=== PATIENT | male | born 1960 | race Caucasian/White ===

== ENCOUNTER → 2018-02-10 | Outpatient (CLI) | payer BC ==
--- NOTE | 2018-02-10 17:19 | CONS ---
CONSULTATION DATE OF SERVICE: 02/10/2018 This patient is a 57-year-old gentleman who has been evaluated in the sleep center for possible obstructive sleep apnea-hypopnea syndrome. HISTORY OF PRESENT ILLNESS/SLEEP-WAKE EVALUATION: Patient's usual sleep schedule is from 7 p.m. until 4:30 a.m. basically 7 days a week. Usually he does not have problems with falling asleep. No TV in bedroom. He has loud snoring and witnessed episodes of stopped breathing during sleep. He wakes up from sleep twice and has one episode of nocturia at night. In the morning he wakes up tired, falling asleep during the day, has difficulties paying attention, problems with memory, irritability, anxiety. [place] Sleepiness Scale is significantly increased at 15. PAST MEDICAL HISTORY: 1. Hypertension. 2. Atrial fibrillation. 3. Low level of vitamin D. PAST SURGICAL HISTORY: 1. One kidney removed as a donation. 2. Nasal surgery for polyps in 2014. MEDICATIONS: 1. Metoprolol. 2. Eliquis. 3. Digoxin. 4. Vitamin D. SOCIAL HISTORY: Positive for smoking 1 to 1-1/2 pack a day for about 30 years; quit in September of 2017. Alcohol consumption up to 6 beers, most often on weekends. FAMILY HISTORY: Hypertension, hyperlipidemia, lung problems, emphysema. REVIEW OF SYSTEMS: Awakenings from sleep, sleepiness during the day. Patient takes naps sometimes when he is off work. PHYSICAL EXAMINATION: GENERAL: Pleasant gentleman without distress. VITAL SIGNS: BP 133/75, HR 108, RR 16, height 6 feet 1 inch, weight 265, BMI 34.9. HEENT: PERRLA, EOMI. Evaluation of oropharynx showed tongue protrudes midline; low position of soft palate. Possible nasal septum deviation, restriction of nasal breathing. NECK: Supple. No JVD. Thyroid is not palpable. LUNGS: Clear to percussion and to auscultation. Good air exchange. No wheezing or rhonchi. HEART: S1, S2 irregularly irregular. No murmurs, gallops or rubs. ABDOMEN: Obese. EXTREMITIES : No clubbing or cyanosis. BLADDER CHANGER: Awake, alert, and oriented X3. Cranial nerves 2 to 7 intact. There is no fasciculation or atrophy. noted. No focal deficits observed. IMPRESSION: 1. Snoring, witnessed episodes of stopped breathing during sleep, low position of soft palate, restriction of nasal breathing, wide neck at 18-1/2 inches in circumference; obstructive sleep apnea-hypopnea syndrome. 2. Obesity; body mass index 34.9. 3. Atrial fibrillation. 4. Hypertension. 5. Low level of vitamin D. 6. Status post kidney removed as donation. 7. Status post nasal surgery for polyps. 8. Restriction of nasal breathing; possibly nasal septum deviation. 9. History of smoking for about 40 pack/years; quit several months ago. PLAN: 1. Polysomnography for evaluation of patient's breathing during sleep. 2. CPAP/BiPAP titration if sleep study confirms obstructive sleep apnea-hypopnea syndrome. 3. Preferable position during sleep on the side. 4. No driving if patient feels any sleepiness. 5. I will see patient for follow up visit to explain results of testing and following plan. Thank you very much for referring this patient for consultation. Sincerely, Blade Darnell MD, PhD, FAASM Diplomat of [employer] [employer] [place] [employer] Video Game Programmer of [facility] [place] MMODL / JANETTEN: [id number] /
== END | disposition home or self-care (01) ==
LOC: SLEEP 16:11
PROVIDERS: ATTEND Internal Medicine
DX: G47.33 Obstructive sleep apnea (adult) (pediatric) (principal); E66.9 Obesity, unspecified; I48.91 Unspecified atrial fibrillation; I10 Essential (primary) hypertension; E55.9 Vitamin D deficiency, unspecified; Z94.0 Kidney transplant status; Z87.891 Personal history of nicotine dependence; Z98.890 Other specified postprocedural states; Z79.01 Long term (current) use of anticoagulants; Z79.899 Other long term (current) drug therapy; Z68.34 Body mass index [BMI] 34.0-34.9, adult; Z99.89 Dependence on other enabling machines and devices
CPT/HCPCS: 99211

== ENCOUNTER → 2018-06-27 | Outpatient (CLI) | payer BC ==
[2018-06-27 09:27] LABS: HCT 50.4 % (39.0-53.0); HGB 16.6 gm/dL (13.0-17.5); MCH 30.4 pg (25.0-35.0); MCV 92.4 fL (80.0-100.0); Mean Platelet Volume 7.2; Platelet Count 322 k/uL (150-450); RBC 5.46 m/uL (4.30-5.90); RDW 13.3 % (11.5-15.5); WBC 8.1 k/uL (3.8-10.6)
[2018-06-27 09:44] LABS: Albumin 3.9 g/dL (3.5-5.0); Calcium 10.1 mg/dL (8.4-10.2); Magnesium 1.9 mg/dL (1.6-2.3); Total Bilirubin 0.3 mg/dL (0.2-1.3); Total Protein 6.7 g/dL (6.3-8.2)
== END | disposition home or self-care (01) ==
LOC: LABWHC1 08:31
PROVIDERS: ATTEND Nurse Practitioner Adult Health
DX: I10 Essential (primary) hypertension (principal); I48.2 Chronic atrial fibrillation
CPT/HCPCS: 36415; 80053; 83735; 85027

== ENCOUNTER 2018-06-28 10:47 | Day surgery (SDC) | payer BC ==
[2018-06-23 09:25] VITALS: BMI 33.1
[~2018-06-28 10:47] MED LIST: SODIUM CHLORIDE 0.9% 1,000 ML IV SCH
[2018-06-28 11:37] VITALS: TEMP 97.9
[2018-06-28] MEDS ORDERED: PROPOFOL 10 MG/ML 20 ML VIAL IV ONE (11:50)
[2018-06-28] MEDS ORDERED: IV FLUID CONTINUATION 1,000 ML IV ONE (11:53)
--- NOTE | 2018-06-28 12:34 | CE ---
CARDIAC ELECTROPHYSIOLOGY REPORT DATE OF SERVICE: 06/28/2018 PERFORMING PHYSICIAN: Clement Cuevas MD, Warehouse Distribution Specialist. PROCEDURE PERFORMED: Cardioversion. INDICATION: This is a pleasant 58-year-old gentleman with known history of paroxysmal atrial fibrillation, who was brought today to undergo cardioversion under general anesthesia. COMPLICATION: None. PROCEDURE DESCRIPTION: After deep sedation was inducted, we did cardioversion of atrial fibrillation to normal sinus mechanism using 200 joules on first attempt. CONCLUSION: Successful cardioversion of atrial fibrillation to normal sinus mechanism using 200 joules on first attempt. MMODL / IJN: [id number] /
[2018-06-28 14:49] VITALS: BP 137/86; RESP 20
[2018-06-28 14:56] VITALS: PULSE 80
== END 2018-06-28 14:15 | disposition home or self-care (01) ==
LOC: CATHCVL 10:47
PROVIDERS: ATTEND Internal Medicine Interventional Cardiology
DX: I48.2 Chronic atrial fibrillation (principal); I10 Essential (primary) hypertension; F10.10 Alcohol abuse, uncomplicated; Z87.891 Personal history of nicotine dependence; Z79.899 Other long term (current) drug therapy
CPT/HCPCS: 92960; J2704

== ENCOUNTER → 2018-08-11 | Outpatient (CLI) | payer BC ==
--- NOTE | 2018-08-11 17:06 | PN ---
PROGRESS NOTE DATE OF SERVICE: 08/11/2018 This patient is a 58-year-old gentleman who has been followed in the sleep center for treatment of obstructive sleep apnea-hypopnea syndrome. Recently patient received his new CPAP unit and this is his first visit with the new unit. He is using equipment every night without significant problems, except some in the beginning, when he did have a little bit of a problem with the pressure. [place] Sleepiness Scale today is 13. Patient still wakes up sometimes in the middle of the night. I checked his CPAP unit. CPAP pressure is 14 cm of water. Usage is 100% of the nights for more than 4 hours. Average usage is 6.8 hours. Leak is quite high at 38 L/minute. Apnea-hypopnea index is only 0.9, which is absolutely perfect. CURRENT MEDICATIONS: 1. Metoprolol. 2. Eliquis. 3. Vitamin D. PHYSICAL EXAMINATION: GENERAL: A pleasant gentleman without distress. VITAL SIGNS: BP 150/79, HR 78, RR 16, weight 272, temperature 97.4, oxygen saturation at room air 96%. HEENT: PERRLA, EOMI. Evaluation of oropharynx showed tongue protrudes midline. Low position of soft palate. NECK: Supple. No JVD. Thyroid is not palpable. LUNGS: Clear to percussion and to auscultation. Good air exchange. No wheezing or rhonchi. HEART: S1, S2 regular. ABDOMEN: Soft and nontender. Bowel sounds are present. No organomegaly. EXTREMITIES: No clubbing or cyanosis. LOG BUNCHER: Awake, alert, and oriented X3. Cranial nerves 2 to 7 intact. There is no fasciculation or atrophy. noted. No focal deficits observed. IMPRESSION: 1. Obstructive sleep apnea-hypopnea syndrome. Patient demonstrated 100% compliance with treatment, benefitting from treatment. 2. Obesity. 3. History of atrial fibrillation in the past, converted to normal sinus rhythm. Today it sounds like regular rhythm. 4. Hypertension. 5. History of low level of vitamin D. 6. Status post left kidney removed for donation. 7. Status post nasal surgery for polyps. 8. Restriction of nasal breathing, possible nasal septum deviation. 9. History of smoking for 40 pack/years in the past; quit about 10 months ago. PLAN: 1. Patient will continue to use CPAP equipment every night for the whole night. 2. I will decrease pressure down to 13 cm of water. 3. Additionally, the patient will try a chinstrap. 4. Losing weight. 5. No driving if feeling any sleepiness. Thank you very much for allowing me to participate in the management of your patient. Sincerely, Blade Darnell MD, PhD, FAASM Diplomat of [employer] [employer] [employer] Cardiovascular Technician of [facility] [place] MMODL / IJN: [id number] /
== END | disposition home or self-care (01) ==
LOC: SLEEP 15:49
PROVIDERS: ATTEND Internal Medicine
DX: G47.33 Obstructive sleep apnea (adult) (pediatric) (principal); I48.91 Unspecified atrial fibrillation; E66.9 Obesity, unspecified; I10 Essential (primary) hypertension; E55.9 Vitamin D deficiency, unspecified; Z99.89 Dependence on other enabling machines and devices; Z79.01 Long term (current) use of anticoagulants; Z79.899 Other long term (current) drug therapy; Z90.5 Acquired absence of kidney; Z98.890 Other specified postprocedural states; Z87.891 Personal history of nicotine dependence

== ENCOUNTER → 2019-10-19 | Outpatient (CLI) | payer BC ==
[2019-10-19 10:02] VITALS: BP 135/87; PULSE 81; RESP 18; TEMP 97.8
--- NOTE | 2019-10-19 11:05 | P.GSHP ---
History of Present Illness H&P Date: 10/19/19 Chief Complaint: abnormal left breast ultrasound Jose Armando is a 59 year old white male who is seen in consultation for Dr. Trujillo regarding a mass in his left breast. The patient states that he noted a mass in the left breast approximately 1 year ago. This appeared to increase in size and then recently a second mass was noted in the breast. He had a ultrasound of the left breast performed on 1230 119. This revealed a 2 cm x 2.6 cm mass in the left breast at the 8 o'clock position. Additionally a 1.6 x 1.1 cm lesion was noted in the left breast at 9:00. No lesions of concern were noted in the right breast. The patient is taking chlorthalidone, fluticasone,vitamin D, Eliquis, metaprolol . He has had no recent change in medications. The patient has not had any swelling of his testicles. The patient is not complaining of any discomfort in his breast other than if he touches base spot in his left breast. No nipple discharge or changes. He has not had any infection in the breast. Has not had any trauma of the breast. Family history: brother: prostate cancer at 53 Surgical History: 1. kidney donation to his sister 2. trauma (ran through a glass door as as child) 3. nasal polyps removed 4. 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 ulcers in the past 2. COPD 3. sleep apnea 4. atrial fib. 5. [place] 6. HTN Social History: smoke: 2PPD/40 years, stopped 2 years ago alcohol: used to drink 12 beers/night, now decreased 2 years ago to 2 beers/night drugs: none - Constitutional Constitutional: Denies chills, Denies fever - EENT Eyes: denies blurred vision, denies pain Ears: bilateral: tinnitus Ears, nose, mouth and throat: Denies headache, Denies sore throat - Breasts Breasts: bilateral: as per HPI - Cardiovascular Comment: atrial fib Cardiovascular: Reports high blood pressure - Respiratory Comment: COPD/ former smoker - Gastrointestinal Comment: history of ulcers in the past Gastrointestinal: Denies abdominal pain, Denies diarrhea, Denies nausea, Denies vomiting - Genitourinary (Male) Genitourinary: Denies dysuria, Denies hematuria - Musculoskeletal Comment: arthritis in back - Integumentary Integumentary: Denies pruritus, Denies rash - Neurological Neurological: Denies numbness, Denies weakness - Psychiatric Psychiatric: Denies anxiety, Denies depression - Endocrine Endocrine: Denies fatigue, Denies weight change - Hematologic/Lymphatic Comment: eliquis - Allergic/Immunologic Allergic/Immunologic: Reports as per HPI Past Medical History Past Medical History: COPD, Hyperlipidemia, Hypertension, Myocardial Infarction ([place]) Additional Past Medical History / Comment(s): pt is a kidney donor-he still has his R kidney, pt was told he had a [place] in his 40's/EKG and echo, slight emphysema, sinus problems, chronic low back pain. Last Myocardial Infarction Date:: unkn History of Any Multi-Drug Resistant Organisms: None Reported Past Surgical History: Orthopedic Surgery Additional Past Surgical History / Comment(s): L nephrectomy, R little finger tip amputation d/t crush injury, 2012 colonoscopy, L hydrocelectomy. Past Anesthesia/Blood Transfusion Reactions: No Reported Reaction Past Psychological History: No Psychological Hx Reported Additional Psychological History / Comment(s): Pt resides with his significant other. He is independent. Smoking Status: Former smoker Past Alcohol Use History: Daily Additional Past Alcohol Use History / Comment(s): Pt started smoking at age 11 or 12yrs. He is a ppd smoker quit 10/06/17. He states he drinks beer daily Past Drug Use History: None Reported - Past Family History Father Family Medical History: No Reported History Additional Family Medical History / Comment(s): Father is healthy and is 82 yrs old. Mother Family Medical History: No Reported History Additional Family Medical History / Comment(s): Mother is healthy and is 80yrs old. Brother(s) Family Medical History: Cancer Additional Family Medical History / Comment(s): colon cancer Medications and Allergies Home Medications Medication Instructions Recorded Confirmed Type Apixaban [Eliquis] 5 mg PO BID #60 tab 10/08/17 10/19/19 Rx Metoprolol Tartrate [Lopressor] 50 mg PO BID #30 tab 10/08/17 10/19/19 Rx Chlorthalidone 25 mg PO DAILY 10/19/19 10/19/19 History Cholecalciferol (Vitamin D3) 2,000 unit PO DAILY 10/19/19 10/19/19 History [Vitamin D3] Allergies Allergy/AdvReac Type Severity Reaction Status Date / Time No Known Allergies Allergy Verified 06/23/18 09:19 Surgical - Exam Vital Signs Temp Pulse Resp BP Pulse Ox 97.8 F 81 18 135/87 94 L 10/19/19 09:54 10/19/19 09:54 10/19/19 09:54 10/19/19 09:54 10/19/19 09:54 BMI 35.3 - General well developed, well nourished, no distress, obese - Eyes conjectiva pink normal ocular movement - ENT Patient is missing his lower front teeth, patient has dentures for his upper teeth normal pinna, normal nares, no hearing loss, no congestion - Neck no masses, trachea midline, no lymphadectomy, no venous distension - Respiratory normal expansion, normal respiratory effort, clear to auscultation - Cardiovascular Rhythm: regular Heart Sounds: normal: S1, S2 - Abdomen Abdomen: soft, non tender, bowel sounds, no guarding, no rigid, no rebound - Genitourinary No testicular masses testicles present, testicles non-tender - Integumentary normal turgor - Neurologic no disoriented, no combative - Musculoskeletal normal gait, normal posture - Psychiatric oriented to time, oriented to person, oriented to place, speech is normal, memory intact breast exam: Right breast: Multi-positional exam no dominant masses or nodules of concern, patient appears to fibrocystic changes Right axilla: No adenopathy of concern left breast: Multiple positional exam 3 palpable abnormalities, these are located at 3:00 approximately 1 cm in size, 8:00 medial aspect of the breast near the sternum which is approximately 2 cm in size, and 9 to 10:00 which is approximately 1-1/2 cm in size the 3:00 lesion is tender, patient appears to fibrocystic changes Left axilla: No adenopathy of concern Results Ultrasound report results reviewed/ultrasound films are not available Assessment and Plan Assessment: Impression: 1. GI ulcers in the past 2. COPD 3. sleep apnea 4. atrial fib. 5. [place] 6. HTN 7. 3 masses left breast 8. Pain left breast associated with one of the masses 9. Fibrocystic changes bilateral breast 10. Family history of cancer Plan: 1. Core biopsy of palpable lesions in the left breast 2. Obtain ultrasound from [facility] to review 3. Stop Eliquis prior to biopsy as per cardiology We have discussed the core biopsy technique. The patient understands the risks and benefits. The patient will stop his Eliquis prior to the biopsy after p ermission is granted by cardiology. At this time I am uncertain as to the etiology of the palpable masses in the left breast. We will await core biopsy for further recommendation. Cc: Dr. Trujillo Encounter: 35 minutes, greater than 50% of time spent in planning and counseling Time with Patient: Greater than 30
== END ==
LOC: WWCWWP 09:37
PROVIDERS: ATTEND Surgery
DX: Z53.9 Procedure and treatment not carried out, unspecified reason (principal)

== ENCOUNTER → 2019-11-30 | Outpatient (CLI) | payer BC ==
[2019-11-30 09:05] VITALS: BP 138/92; PULSE 74; RESP 16; TEMP 98.3
--- NOTE | 2019-11-30 09:47 | P.OP ---
Date of Procedure: 11/30/19 Preoperative Diagnosis: 3 palpable masses left breast, 3:00, 8:00, 9:00. Patient's ultrasound was reviewed no lesion was seen at 3:00, lesion at 8:00 appears to be consistent with lipoma, lesion at 9:00 appears to be consistent with a cystic lesion probable sebaceous cyst. These radiographs were reviewed with the radiologist and secondary to the question of sebaceous cyst was felt that core biopsy should not be performed at the 9:00 lesion but that this should be removed in the operating room. Risks and benefits of the biopsy were discussed with the patient and he wished to proceed. Postoperative Diagnosis: Core biopsy lesion left breast at 8:00 Anesthesia: local Surgeon: Bette Salazar Estimated Blood Loss (ml): 1 Pathology: other (Breast tissue) Disposition: same day Indications for Procedure: Probable mass seen on ultrasound as well at 8 o'clock position left breast/most likely lipoma Operative Findings: Fibrofatty breast tissue Description of Procedure: The area of concern in the left breast at 8:00 was prepped using Betadine. One percent lidocaine approximately 5 mL were used to anesthetize the area of concern. Small jacinto was made in the skin and an 18-gauge Bard core biopsy needle was inserted into the area of concern. 3 samples were obtained. Specimens were sent to pathology. Patient tolerated procedure in stable condition. Impression/plan: 1. Most likely lipoma 8 o'clock position left breast core biopsy obtained 2. Lesion at 3:00 and 9:00 most likely cysts possible sebaceous cyst resection and operating room recommended 3. Patient would like lesion at 8:00 to be removed at the same time as well 4. Cardiac clearance prior to procedure 5. re-start Eliquis as per cardiology CC: DR. Trujillo
== END | disposition home or self-care (01) ==
LOC: WWCWWP 08:46
PROVIDERS: ATTEND Surgery
DX: R93.89 Abnormal findings on diagnostic imaging of other specified body structures (principal)
CPT/HCPCS: 88305

== ENCOUNTER 2019-12-12 11:44 | Day surgery (SDC) | payer BC ==
[2019-12-11 08:48] VITALS: BMI 35.4
[~2019-12-12 11:44] MED LIST changes: +DEXAMETHASONE SOD PHOSPHATE 10 MG/ML 1 ML VIAL IV ONE; +HEPARIN SODIUM,PORCINE 5,000 UNIT/ML 1 ML VIAL SQ ONE; +HYDROmorphone 0.5 MG/0.5 ML SYRINGE IVP PRN; +LACTATED RINGERS 1,000 ML IV SCH; +LIDOCAINE 1% (10MG/ML) FOR IV START INTRADERMA PRN; +MIDAZOLAM 2 MG/2 ML VIAL IV PRN; +ONDANSETRON 4 MG/2 ML VIAL IVP ONE; +SCOPOLAMINE 1.5MG/72HR PATCH TRANSDERM ONE; -SODIUM CHLORIDE 0.9% 1,000 ML IV SCH; +ceFAZolin 3 GM in SODIUM CHLORIDE 0.9% 100 ML IVPB ONE
[2019-12-12] MEDS ORDERED: MIDAZOLAM 2 MG/2 ML VIAL IVP ONE (13:07)
[2019-12-12] MEDS ORDERED: LIDOCAINE 1% INJ 10MG/ML (20 ML MDV) ONE (14:35)
[2019-12-12] MEDS ORDERED: fentaNYL (PF) 50 MCG/ML 2 ML AMP ONE (14:35)
[2019-12-12] MEDS ORDERED: PROPOFOL 10 MG/ML 20 ML VIAL IV ONE (14:35)
[2019-12-12] MEDS ORDERED: MIDAZOLAM 2 MG/2 ML VIAL ONE (14:35)
[2019-12-12] MEDS ORDERED: LIDOCAINE 1% INJ 10MG/ML (20 ML MDV) SQ ONE (15:18)
--- NOTE | 2019-12-12 15:36 | P.OP ---
Date of Procedure: 12/12/19 Preoperative Diagnosis: three masses left breast Postoperative Diagnosis: lipoma times two, sebaceous cyst Procedure(s) Performed: excision of three lesions left breast Anesthesia: BRIDGER Surgeon: Bette Salazar Estimated Blood Loss (ml): 2 IV fluids (ml): 300 Pathology: other (three breast lesions) Condition: stable Disposition: same day Indications for Procedure: palpable breast lesions times three Operative Findings: two lipoma's, sebaceous cyst Description of Procedure: Patient is a 59-year-old white female who presents for excision of 3 palpable lesions from his left breast. The first lesion was in the lateral aspect. An incision was made over this and the lesion was excised. It was deep in the subcutaneous tissue. It was 1.2 cm in size and consistent with a lipoma. The wound was evaluated for hemostasis. 3-0 Vicryl was placed. 4-0 Monocryl was placed. The second lesion approached was the inferior medial lesion. Incision was made over the lesion and a 2 cm lipomatous lesion was excised. Hemostasis was attained using electrocautery device. Vicryl was placed followed by 4-0 Monocryl. The final lesion was the superior medial lesion. An incision was made over this lesion and it was apparent that it was consistent with a sebaceous cyst. Wide excision around the cyst was performed. The lesion was 2.5 cm in size. Following this the wound was well irrigated. This closure was with interrupted nylon sutures. Patient tolerated the procedure in stable condition all instrument counts were correct at the end of the case.
--- NOTE | 2019-12-12 15:40 | P.DS ---
Providers Attending physician: Bette Salazar Primary care physician: Jairo Trujillo Plan - Discharge Summary Discharge Rx Participant: No New Discharge Prescriptions: No Action Apixaban [Eliquis] 5 mg PO BID #60 tab Metoprolol Tartrate [Lopressor] 50 mg PO BID #30 tab Chlorthalidone 25 mg PO DAILY Cholecalciferol (Vitamin D3) [Vitamin D3] 2,000 unit PO DAILY Discharge Medication List Apixaban [Eliquis] 5 mg PO BID #60 tab 10/08/17 [Rx] Metoprolol Tartrate [Lopressor] 50 mg PO BID #30 tab 10/08/17 [Rx] Chlorthalidone 25 mg PO DAILY 10/19/19 [History] Cholecalciferol (Vitamin D3) [Vitamin D3] 2,000 unit PO DAILY 10/19/19 [History] Follow up Appointment(s)/Referral(s): Bette Salazar MD [STAFF PHYSICIAN] - 12/28/19 2:20 pm Activity/Diet/Wound Care/Special Instructions: do not drive for 24 hours from discharge may shower after 48 hours Discharge Disposition: HOME SELF-CARE
[2019-12-12 15:55] VITALS: RESP 18; TEMP 97.7
[2019-12-12 16:46] VITALS: BP 121/67; PULSE 74
== END 2019-12-12 17:05 | disposition home or self-care (01) ==
LOC: OR 11:44
PROVIDERS: ATTEND Surgery
DX: L72.0 Epidermal cyst (principal); D17.39 Benign lipomatous neoplasm of skin and subcutaneous tissue of other sites; I10 Essential (primary) hypertension; J44.9 Chronic obstructive pulmonary disease, unspecified; G47.30 Sleep apnea, unspecified; I48.91 Unspecified atrial fibrillation; I25.2 Old myocardial infarction; Z86.19 Personal history of other infectious and parasitic diseases; Z79.01 Long term (current) use of anticoagulants; Z79.899 Other long term (current) drug therapy; Z99.89 Dependence on other enabling machines and devices; Z87.891 Personal history of nicotine dependence
CPT/HCPCS: 19120 ×3; 88304; J2250; J1644; J1100; J2405; J2001; J3010; J2704

== ENCOUNTER → 2020-09-21 | Outpatient (CLI) | payer BC ==
--- NOTE | 2020-09-21 08:13 | CT ---
EXAMINATION TYPE: CT sinus wo con DATE OF EXAM: 09/21/2020 COMPARISON: 01/27/2013 HISTORY: Prior sinus surgery to remove polyps. Scan prior to upcoming surgery CT DLP: 563 mGycm CONTRAST: 0 mL of Isovue 300 The paranasal sinuses are examined in the axial plane at 2 mm thick sections. Reconstructed images i n the coronal plane were obtained. Maxillary spine is intact Thick mucosal thickening is through the bilateral maxillary sinuses. There is extension into the nasa l passages. There is opacification through ethmoid air cells. There is an air-fluid level within the left sphenoid sinus. Right sphenoid sinus is opacified. There is near complete opacification of the f rontal sinuses. The septum is evaluated. There is septal deviation to the right. There is been prior bilateral uncinectomies. The right ostiomeatal unit region is patent. There is ob struction on the left. IMPRESSIONS: 1. Clinical correlation recommended for nasal polyposis or pansinusitis. 2. Obstruction of the left ostiomeatal unit. Patient has had prior uncinectomies. 3. Acute sinusitis is likely present within the left sphenoid sinus.
== END | disposition home or self-care (01) ==
LOC: RADCTMAIN 07:13
PROVIDERS: ATTEND Otolaryngology
DX: J34.89 Other specified disorders of nose and nasal sinuses (principal); J32.9 Chronic sinusitis, unspecified
CPT/HCPCS: 70486

== ENCOUNTER → 2020-11-23 | Outpatient (CLI) | payer BC ==
[2020-11-23 09:58] LABS: Basophils # (A) 0.1 k/uL (0-0.2); Basophils % (A) 1 %; Eosinophils # (A) 0.5 k/uL (0-0.7); Eosinophils % (A) 5 %; HCT 49.7 % (39.0-53.0); HGB 16.5 gm/dL (13.0-17.5); Lymphocytes # (A) 3.1 k/uL (1.0-4.8); Lymphocytes % (A) 36 %; MCH 29.9 pg (25.0-35.0); MCHC 33.2 g/dL (31.0-37.0); Mean Platelet Volume 8.1; Monocytes # (A) 0.7 k/uL (0-1.0); Monocytes % (A) 8 %; Neutrophils # (A) 4.2 k/uL (1.3-7.7); Neutrophils % (A) 49 %; Platelet Count 321 k/uL (150-450); RBC 5.52 m/uL (4.30-5.90); RDW 13.7 % (11.5-15.5); WBC 8.6 k/uL (3.8-10.6)
[2020-11-23 12:37] LABS: African American GFR (CKD) 95.7 (60.0-200.0); Albumin 4.7 g/dL (3.80-4.90); Albumin/Globulin Ratio 2.61 (1.60-3.17); Anion Gap 8.3 mmol/L (4.00-12.00); Carbon Dioxide 24.7 mmol/L (21.6-31.8); Globulin 1.8 g/dL (1.6-3.3); Non-African American GFR(CKD) 82.6 (60.0-200.0); Potassium 4.4 mmol/L (3.5-5.5); Total Bilirubin 0.5 mg/dL (0.2-1.2); Total Protein 6.5 g/dL (6.2-8.2)
== END | disposition home or self-care (01) ==
LOC: LABMAIN 08:46
PROVIDERS: ATTEND Physician Assistant
DX: R19.7 Diarrhea, unspecified (principal)
CPT/HCPCS: 36415; 80053; 85025

== ENCOUNTER 2021-06-06 08:39 | Emergency (ER) | payer BC ==
[2021-06-06 08:42] VITALS: TEMP 98
--- NOTE | 2021-06-06 08:59 | ED ---
General Adult HPI - General Chief complaint: Shortness of Breath Stated complaint: Swollen feet, headache, SOB Time Seen by Provider: 06/06/21 08:50 Source: patient, RN notes reviewed Mode of arrival: ambulatory Limitations: no limitations - History of Present Illness Initial comments: This 61-year-old male presents emergency Department with chief complaint of shortness of breath. Patient states this started on Wednesday and has progressed. Patient states he does have history of CAD feels more his usual self started shortness breath. denies any history of congestive heart failure. Patient does have a history of A. fib in which she was cardioverted. Patient complaining of foot pain. Patient states the pain is worse when he states he has no resting foot pain states he stepped on it feels very sharp in the arch of his feet. Patient denies any fevers chills is a slight cough no went to chest pain. Patient's had no sick contacts. Patient denies any nausea vomiting diarrhea constipation denies any dietary changes. Patient does not take any known diuretics. - Related Data Home Medications Medication Instructions Recorded Confirmed Chlorthalidone 25 mg PO DAILY 10/19/19 06/06/21 Cholecalciferol (Vitamin D3) 2,000 unit PO DAILY 10/19/19 06/06/21 [Vitamin D3] Ascorbic Acid [Vitamin C] 500 mg PO DAILY 06/06/21 06/06/21 Metoprolol Tartrate [Lopressor] 75 mg PO BID 06/06/21 06/06/21 Previous Rx's Medication Instructions Recorded Apixaban [Eliquis] 5 mg PO BID #60 tab 10/08/17 predniSONE 50 mg PO DAILY #5 tab 06/06/21 Allergies Allergy/AdvReac Type Severity Reaction Status Date / Time No Known Allergies Allergy Verified 06/06/21 09:06 Review of Systems ROS Statement: Those systems with pertinent positive or pertinent negative responses have been documented in the HPI. ROS Other: All systems not noted in ROS Statement are negative. 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 Last Myocardial Infarction Date:: unkn History of Any Multi-Drug Resistant Organisms: None Reported Past Surgical History: Orthopedic Surgery Additional Past Surgical History / Comment(s): L nephrectomy, R little finger tip amputation d/t crush injury, 2013 colonoscopy, L hydrocelectomy. BREAST BIOPSY Past Anesthesia/Blood Transfusion Reactions: No Reported Reaction Past Psychological History: No Psychological Hx Reported Smoking Status: Never smoker Past Alcohol Use History: Heavy Past Drug Use History: None Reported - Past Family History Father Family Medical History: No Reported History Additional Family Medical History / Comment(s): Father is healthy and is 82 yrs old. Mother Family Medical History: No Reported History Additional Family Medical History / Comment(s): Mother is healthy and is 80yrs old. Brother(s) Family Medical History: Cancer Additional Family Medical History / Comment(s): colon cancer General Exam Limitations: no limitations General appearance: alert, in no apparent distress Head exam: Present: atraumatic, normocephalic, normal inspection Eye exam: Present: normal appearance, PERRL, EOMI. Absent: scleral icterus, conjunctival injection, periorbital swelling ENT exam: Present: normal exam, normal oropharynx, mucous membranes moist Neck exam: Present: normal inspection, full ROM. Absent: tenderness, meningismus, lymphadenopathy Respiratory exam: Present: normal lung sounds bilaterally. Absent: respiratory distress, wheezes, rales, rhonchi, stridor Cardiovascular Exam: Present: regular rate, normal rhythm, normal heart sounds. Absent: systolic murmur, diastolic murmur, rubs, gallop, clicks GI/Abdominal exam: Present: soft, normal bowel sounds. Absent: distended, tenderness, guarding, rebound, rigid Extremities exam: Present: pedal edema (Very minimal) Neurological exam: Present: alert Skin exam: Present: warm, dry, intact, normal color. Absent: rash Course Vital Signs 06/06/21 06/06/21 06/06/21 08:40 09:00 09:30 Temperature 98 F Pulse Rate 71 73 74 Respiratory 20 18 18 Rate Blood Pressure 132/91 130/108 141/86 O2 Sat by Pulse 96 97 97 Oximetry 06/06/21 10:40 Temperature Pulse Rate Respiratory Rate Blood Pressure O2 Sat by Pulse 95 Oximetry Medical Decision Making - Medical Decision Making X-ray, labs unremarkable. Patient does have some mild COPD. Patient has foot pain related to plantar fasciitis. Patient we discharged stable condition. - Lab Data Result diagrams: 06/06/21 09:00 06/06/21 09:00 Lab Results 06/06/21 06/06/21 06/06/21 Range/Units 09:00 09:00 09:00 WBC 9.6 (3.8-10.6) k/uL RBC 5.24 (4.30-5.90) m/uL Hgb 16.4 (13.0-17.5) gm/dL Hct 48.4 (39.0-53.0) % MCV 92.3 (80.0-100.0) fL MCH 31.2 (25.0-35.0) pg MCHC 33.8 (31.0-37.0) g/dL RDW 13.7 (11.5-15.5) % Plt Count 330 (150-450) k/uL MPV 7.8 Neutrophils % 56 % Lymphocytes % 31 % Monocytes % 6 % Eosinophils % 4 % Basophils % 1 % Neutrophils # 5.4 (1.3-7.7) k/uL Lymphocytes # 3.0 (1.0-4.8) k/uL Monocytes # 0.6 (0-1.0) k/uL Eosinophils # 0.4 (0-0.7) k/uL Basophils # 0.1 (0-0.2) k/uL PT 10.4 (9.0-12.0) sec INR 1.0 (<1.2) APTT 24.9 (22.0-30.0) sec D-Dimer 0.19 (<0.60) mg/L FEU Sodium 138 (137-145) mmol/L Potassium 4.2 (3.5-5.1) mmol/L Chloride 104 (98-107) mmol/L Carbon Dioxide 23 (22-30) mmol/L Anion Gap 11 mmol/L BUN 15 (9-20) mg/dL Creatinine 0.85 (0.66-1.25) mg/dL Est GFR (CKD-EPI)AfAm >90 (>60 ml/min/1.73 sqM) Est GFR (CKD-EPI)NonAf >90 (>60 ml/min/1.73 sqM) Glucose 112 H (74-99) mg/dL Plasma Lactic Acid Tru (0.7-2.0) mmol/L Calcium 10.5 H (8.4-10.2) mg/dL Magnesium 1.9 (1.6-2.3) mg/dL Total Bilirubin 0.4 (0.2-1.3) mg/dL AST 27 (17-59) U/L ALT 32 (4-49) U/L Alkaline Phosphatase 68 (38-126) U/L Troponin I (0.000-0.034) ng/mL NT-Pro-B Natriuret Pep pg/mL Total Protein 7.1 (6.3-8.2) g/dL Albumin 4.5 (3.5-5.0) g/dL Coronavirus (PCR) (Not Detectd) 06/06/21 06/06/21 06/06/21 Range/Units 09:00 09:00 09:00 WBC (3.8-10.6) k/uL RBC (4.30-5.90) m/uL Hgb (13.0-17.5) gm/dL Hct (39.0-53.0) % MCV (80.0-100.0) fL MCH (25.0-35.0) pg MCHC (31.0-37.0) g/dL RDW (11.5-15.5) % Plt Count (150-450) k/uL MPV Neutrophils % % Lymphocytes % % Monocytes % % Eosinophils % % Basophils % % Neutrophils # (1.3-7.7) k/uL Lymphocytes # (1.0-4.8) k/uL Monocytes # (0-1.0) k/uL Eosinophils # (0-0.7) k/uL Basophils # (0-0.2) k/uL PT (9.0-12.0) sec INR (<1.2) APTT (22.0-30.0) sec D-Dimer (<0.60) mg/L FEU Sodium (137-145) mmol/L Potassium (3.5-5.1) mmol/L Chloride (98-107) mmol/L Carbon Dioxide (22-30) mmol/L Anion Gap mmol/L BUN (9-20) mg/dL Creatinine (0.66-1.25) mg/dL Est GFR (CKD-EPI)AfAm (>60 ml/min/1.73 sqM) Est GFR (CKD-EPI)NonAf (>60 ml/min/1.73 sqM) Glucose (74-99) mg/dL Plasma Lactic Acid Tru 1.4 (0.7-2.0) mmol/L Calcium (8.4-10.2) mg/dL Magnesium (1.6-2.3) mg/dL Total Bilirubin (0.2-1.3) mg/dL AST (17-59) U/L ALT (4-49) U/L Alkaline Phosphatase (38-126) U/L Troponin I <0.012 (0.000-0.034) ng/mL NT-Pro-B Natriuret Pep 39 pg/mL Total Protein (6.3-8.2) g/dL Albumin (3.5-5.0) g/dL Coronavirus (PCR) (Not Detectd) 06/06/21 Range/Units 09:00 WBC (3.8-10.6) k/uL RBC (4.30-5.90) m/uL Hgb (13.0-17.5) gm/dL Hct (39.0-53.0) % MCV (80.0-100.0) fL MCH (25.0-35.0) pg MCHC (31.0-37.0) g/dL RDW (11.5-15.5) % Plt Count (150-450) k/uL MPV Neutrophils % % Lymphocytes % % Monocytes % % Eosinophils % % Basophils % % Neutrophils # (1.3-7.7) k/uL Lymphocytes # (1.0-4.8) k/uL Monocytes # (0-1.0) k/uL Eosinophils # (0-0.7) k/uL Basophils # (0-0.2) k/uL PT (9.0-12.0) sec INR (<1.2) APTT (22.0-30.0) sec D-Dimer (<0.60) mg/L FEU Sodium (137-145) mmol/L Potassium (3.5-5.1) mmol/L Chloride (98-107) mmol/L Carbon Dioxide (22-30) mmol/L Anion Gap mmol/L BUN (9-20) mg/dL Creatinine (0.66-1.25) mg/dL Est GFR (CKD-EPI)AfAm (>60 ml/min/1.73 sqM) Est GFR (CKD-EPI)NonAf (>60 ml/min/1.73 sqM) Glucose (74-99) mg/dL Plasma Lactic Acid Tru (0.7-2.0) mmol/L Calcium (8.4-10.2) mg/dL Magnesium (1.6-2.3) mg/dL Total Bilirubin (0.2-1.3) mg/dL AST (17-59) U/L ALT (4-49) U/L Alkaline Phosphatase (38-126) U/L Troponin I (0.000-0.034) ng/mL NT-Pro-B Natriuret Pep pg/mL Total Protein (6.3-8.2) g/dL Albumin (3.5-5.0) g/dL Coronavirus (PCR) Not Detected (Not Detectd) Disposition Clinical Impression: COPD (chronic obstructive pulmonary disease), Bilateral foot pain, Plantar fasciitis Disposition: HOME SELF-CARE Condition: Stable Instructions (If sedation given, give patient instructions): Plantar Fasciitis (ED) Additional Instructions: Please return to the Emergency Department if symptoms worsen or any other concerns. Prescriptions: predniSONE 50 mg PO DAILY #5 tab Is patient prescribed a controlled substance at d/c from ED?: No Referrals: Mariana Wang NPC [REFERRING] - 1-2 days Time of Disposition: 11:15
--- NOTE | 2021-06-06 09:23 | XR ---
EXAMINATION TYPE: XR chest 2V DATE OF EXAM: 06/06/2021 COMPARISON: 10/06/2017 TECHNIQUE: PA and lateral views submitted. HISTORY: Difficulty breathing FINDINGS: The lungs are clear and there is no pneumothorax, pleural effusion, or focal pneumonia. Suspect tin y calcified granuloma right upper lobe stable from prior exam. Mild hyperinflation. Heart size normal . No overt failure. Hypertrophic change of the spine. IMPRESSION: 1. No acute process. Correlate for mild COPD.
[2021-06-06 09:27] LABS: Basophils # (A) 0.1 k/uL (0-0.2); Basophils % (A) 1 %; Eosinophils # (A) 0.4 k/uL (0-0.7); Eosinophils % (A) 4 %; HCT 48.4 % (39.0-53.0); HGB 16.4 gm/dL (13.0-17.5); Lymphocytes % (A) 31 %; MCH 31.2 pg (25.0-35.0); MCHC 33.8 g/dL (31.0-37.0); MCV 92.3 fL (80.0-100.0); Mean Platelet Volume 7.8; Monocytes # (A) 0.6 k/uL (0-1.0); Monocytes % (A) 6 %; Neutrophils # (A) 5.4 k/uL (1.3-7.7); Neutrophils % (A) 56 %; Platelet Count 330 k/uL (150-450); RBC 5.24 m/uL (4.30-5.90); RDW 13.7 % (11.5-15.5); WBC 9.6 k/uL (3.8-10.6)
[2021-06-06 09:31] VITALS: RESP 18
[2021-06-06 09:33] LABS: ALT 32 U/L (4-49); AST 27 U/L (17-59); African American GFR (CKD) >90 (>60 ml/min/1.73 sqM); Albumin 4.5 g/dL (3.5-5.0); Alkaline Phosphatase 68 U/L (38-126); Anion Gap 11 mmol/L; Blood Urea Nitrogen 15 mg/dL (9-20); Calcium 10.5 mg/dL (8.4-10.2); Carbon Dioxide 23 mmol/L (22-30); Chloride 104 mmol/L (98-107); Glucose 112 mg/dL (74-99); Magnesium 1.9 mg/dL (1.6-2.3); Non-African American GFR(CKD) >90 (>60 ml/min/1.73 sqM); Potassium 4.2 mmol/L (3.5-5.1); Sodium 138 mmol/L (137-145); Total Bilirubin 0.4 mg/dL (0.2-1.3); Total Protein 7.1 g/dL (6.3-8.2)
[2021-06-06 09:46] LABS: Partial Thromboplastin Time 24.9 sec (22.0-30.0); Prothrombin Time 10.4 sec (9.0-12.0)
[2021-06-06] MEDS ORDERED: ACET/COD 300 MG/30 MG STARTER PACK 6 TAB BTL PO STA (11:15)
[2021-06-06 11:23] VITALS: BP 130/89; PULSE 71
== END 2021-06-06 11:38 | disposition home or self-care (01) ==
LOC: EC 08:39
DX: J44.9 Chronic obstructive pulmonary disease, unspecified (principal); M72.2 Plantar fascial fibromatosis; I10 Essential (primary) hypertension; I25.2 Old myocardial infarction; I48.91 Unspecified atrial fibrillation; Z79.899 Other long term (current) drug therapy; Z20.822 Contact with and (suspected) exposure to COVID-19
CPT/HCPCS: 36415; 71046; 80053; 83605; 83735; 83880; 84484; 85025; 85379; 85610; 85730; 87635; 93005; 99285

== ENCOUNTER → 2022-09-24 | Outpatient (CLI) | payer BC ==
--- NOTE | 2022-09-24 16:20 | P.SLEEP ---
History of Present Illness DATE: [] CONSULTATION/NEW PATIENT EVALUATION HISTORY OF PRESENT ILLNESS/SLEEP-WAKE EVALUATION: 62-year-old gentleman had been evaluated in the sleep center for obstructive sleep apnea hypopnea syndrome. Patient was diagnosed with obstructive sleep apnea hypopnea syndrome in our institution in 2018 was started on treatment with CPAP at that time. Patient continued to use his CPAP equipment every night for the whole night. I checked CPAP unit CPAP pressure is 13 cm of water. Usage is 100% of the time, 7.5 hours per night, no significant leak is 0 L/m, apnea-hypopnea index 0.5 which is normal SLEEP SCHEDULE: Usually sleep schedule on weekdays from 7:30 PM until 5 AM, on the weekend from 8 PM to 6 AM. FALLING ASLEEP: No problems with falling asleep, no TV in bedroom. DURING SLEEP: No snoring with CPAP. Patient makes wake up from sleep once to use the restroom. No history of hypnogogical hallucinations, sleep paralysis, or cataplexy. DURING THE DAY/WAKE STATE: Episodes of sleepiness during the day especially while watching TV or reading. [place] sleepiness scale is 9, which is normal. Usually patient doesn't take naps. PAST MEDICAL HISTORY: History of atrial fibrillation in the past, no recent episodes, hypertension. PAST SURGICAL HISTORY: Status post left kidney removed for donation, status post nasal surgery for polyps. MEDICATIONS: Eliquis, metoprolol, allopurinol, chlorthalidone. SOCIAL HISTORY: Positive for smoking for about 40 pack years quit about 15 years ago, alcohol consumption occasional. FAMILY HISTORY: Hypertension. REVIEW OF SYSTEMS: Occasional awakenings from sleep. No fevers. No double vision. No recent chest pain. No shortness of breath. No abdominal pain. No bleeding episodes. No blood in urine. No seizure episodes. PHYSICAL EXAMINATION: GENERAL: A pleasant patient without any distress. VITAL SIGNS: BP 130/84 , HR 88 , RR 16 , weight 271 pounds, height 6 foot 1-1/2 inches, body mass index 35.1 . HEENT: PERRLA, EOMI. Evaluation of oropharynx showed tongue protrudes midline, low position of soft palate Mallampati 4. NECK: Supple. No JVD. Thyroid is not palpable. LUNGS: Clear to percussion and to auscultation. Good air exchange. No wheezing or rhonchi. HEART: S1, S2 regular. No murmurs, gallops or rubs. ABDOMEN: Soft and nontender. Bowel sounds are present. No organomegaly appreciated. EXTREMITIES: No clubbing or cyanosis. FASHION MODEL: Awake, alert, and oriented x3. Cranial nerves 2 to 7 intact. There is no fasciculation or atrophy noted. No focal deficits observed. ASSESSMENT: 1. Obstructive sleep apnea hypopnea syndrome diagnosed in our institution in 2018 in severe range apnea-hypopnea index 36.1. Patient demonstrated 100% compliance with CPAP treatment, normal respiration on CPAP. 2. Obesity body mass index 35.1. 3. Hypertension. 4. History of atrial fibrillation in the past, no episodes for last several years. 5 status post left kidney removed for donation. 6 . Status post nasal surgery for polyps. PLAN: 1. Patient will continue to use CPAP equipment every night for the whole night 2. Prescription for CPAP supplies including nasal pillow mask, heated tube, filters, chamber for the water. 3. Preferable position during sleep on the side. 4. No driving if patient feels any sleepiness. Patient is aware of civil and criminal liability for unsafe driving. 5. Sleep hygiene with regular sleep time for at least 7.5-8 hours. 6. Watching and losing weight. 7. Follow-up visit in 6 months Thank you very much for referring this patient for consultation. Sincerely, Blade Darnell MD, PhD, FAASM. 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 Last Myocardial Infarction Date:: unkn History of Any Multi-Drug Resistant Organisms: None Reported Past Surgical History: Orthopedic Surgery Additional Past Surgical History / Comment(s): L nephrectomy, R little finger tip amputation d/t crush injury, 2012 colonoscopy, L hydrocelectomy. BREAST BIOPSY Past Anesthesia/Blood Transfusion Reactions: No Reported Reaction Past Psychological History: No Psychological Hx Reported Smoking Status: Never smoker Past Alcohol Use History: Heavy Past Drug Use History: None Reported - Past Family History Father Family Medical History: No Reported History Additional Family Medical History / Comment(s): Father is healthy and is 82 yrs old. Mother Family Medical History: No Reported History Additional Family Medical History / Comment(s): Mother is healthy and is 80yrs old. Brother(s) Family Medical History: Cancer Additional Family Medical History / Comment(s): colon cancer Medications and Allergies Home Medications Medication Instructions Recorded Confirmed Type Apixaban [Eliquis] 5 mg PO BID #60 tab 10/08/17 06/06/21 Rx Chlorthalidone 25 mg PO DAILY 10/19/19 06/06/21 History Cholecalciferol (Vitamin D3) 2,000 unit PO DAILY 10/19/19 06/06/21 History [Vitamin D3] Ascorbic Acid [Vitamin C] 500 mg PO DAILY 06/06/21 06/06/21 History Metoprolol Tartrate [Lopressor] 75 mg PO BID 06/06/21 06/06/21 History predniSONE 50 mg PO DAILY #5 tab 06/06/21 Rx Allergies Allergy/AdvReac Type Severity Reaction Status Date / Time No Known Allergies Allergy Verified 06/06/21 09:06 Sleep Note - Sleep Note Sleep Note: Temperature: Pulse Rate: Respiratory Rate: Blood Pressure: SpO2: Height: Weight: BMI: Neck Circumference:
== END ==
LOC: SLEEP 15:23
PROVIDERS: ATTEND Internal Medicine
DX: G47.33 Obstructive sleep apnea (adult) (pediatric) (principal); Z99.89 Dependence on other enabling machines and devices; E66.9 Obesity, unspecified; Z68.35 Body mass index [BMI] 35.0-35.9, adult; I10 Essential (primary) hypertension; Z98.890 Other specified postprocedural states; Z90.5 Acquired absence of kidney; Z79.899 Other long term (current) drug therapy; Z87.891 Personal history of nicotine dependence
CPT/HCPCS: 99211

== ENCOUNTER → 2023-04-22 | Outpatient (CLI) | payer BC ==
--- NOTE | 2023-04-22 18:07 | P.PN ---
Subjective DATE: 04/22/2023 FOLLOW UP VISIT. Patient with obstructive sleep apnea hypopnea syndrome return to sleep center for follow-up visit. Information from previous visit have been reviewed. Patient is using PAP equipment every night for the whole night, getting PAP supplies in time. The patient does not have significant problems with the mask, PAP unit and humidification. [place] sleepiness scale is 6, which is normal. I checked information from PAP unit. PAP unit pressure 13 cm H2O. Usage is 100 % for more then 4 hours, average 5 hours per night. Leak is 0l/m, which is in acceptable range. Apnea Hypopnea Index is 1.1, which is normal. CPAP unit is old, does not work well. MEDICATIONS:1. Metoprolol 2.. Allopurinol 3. Eliquis During physical exam: GENERAL: A pleasant patient without any distress. VITAL SIGNS: BP 155/100, HR 91, RR12 , weight 274.2, temperature 97.6, oxygen saturation at room air 95 % . HEENT: PERRLA, EOMI.low position of soft palate, Mallapati 4 . NECK: Supple. No JVD. LUNGS: Clear to percussion and to auscultation. Good air exchange. No wheezing or rhonchi. HEART: S1, S2 regular. ABDOMEN: Soft and nontender.[] EXTREMITIES: No clubbing or cyanosis. TRAMPOLINE TEAM COACH: Awake, alert, and oriented x3. No focal deficit. Impressions: 1. Obstructive sleep apnea-hypopnea syndrome. Patient demonstrated great compliance with treatment, benefiting from treatment. 2. Obesity, body mass index 36.1. 3. History of atrial fibrillation in the past. 4. Hypertension. 5. Status post left kidney removed for the nation. 6. Status post nasal surgery for polyps. Plan: 1. Continue using PAP equipment every night for the whole night. Prescription for new AutoPAP unit. 2. To change air filter at least 1-2 times per month. 3. PAP unit should stay lower then position of the head. 4. Advised patient to remove all remaining water from humidifier canister daily and make it dry after each usage. Refill canister with fresh distilled water before each usage. 5. Sleep hygiene with regular time in bed for at least 8 hours. 6. Precautions related to driving. No driving if feel any sleepiness. 7. I will maintain prescription for PAP supplies including mask, tube, filters. 8. Follow up visit in 2 months after patient will get new Pap unit . 9. Watching weight. Thank you very much for allowing me to participate in the management of your patient. Blade Darnell MD, PhD, FAASM. Diplomat of [employer], Sleep Medicine Board by [employer] [facility] [place]
== END ==
LOC: 3 N SLEEP 15:53
PROVIDERS: ATTEND Internal Medicine
DX: G47.33 Obstructive sleep apnea (adult) (pediatric) (principal); I48.91 Unspecified atrial fibrillation; E66.9 Obesity, unspecified; Z68.36 Body mass index [BMI] 36.0-36.9, adult; I10 Essential (primary) hypertension; J34.9 Unspecified disorder of nose and nasal sinuses; Z99.89 Dependence on other enabling machines and devices; Z79.01 Long term (current) use of anticoagulants; Z79.899 Other long term (current) drug therapy; Z90.5 Acquired absence of kidney; Z87.891 Personal history of nicotine dependence
CPT/HCPCS: 99212